=== PATIENT | female | born 1995 | race American Indian/Alaskan Native ===

== ENCOUNTER 2016-10-29 15:43 | Outpatient (CLI) | payer OTHER, MEDICAID ==
[2016-10-29 16:14] VITALS: BP 98/68
== END 2016-10-29 19:26 | disposition home or self-care (01) ==
LOC: TRG 15:43
PROVIDERS: ATTEND Obstetrics & Gynecology
DX: O47.1 False labor at or after 37 completed weeks of gestation (principal); Z3A.39 39 weeks gestation of pregnancy

== ENCOUNTER 2016-10-30 05:35 | Inpatient (IN) | payer OTHER, MEDICAID ==
[2016-10-30] MEDS ORDERED: LACTATED RINGERS 1,000 ML ONE (05:44)
[2016-10-30] MEDS ORDERED: STADOL IV PRN ×2 (05:51→06:25)
[2016-10-30] MEDS ORDERED: PITOCin/NS 20 UNIT/1000ML DRIP 20 UNITS/1,000 ML BAG IV SCH ×2 (06:00→07:00)
[2016-10-30] MEDS: LACTATED RINGERS 1,000 ML IV SCH ×3 (06:01→08:01)
[2016-10-30] MEDS ORDERED: NARCAN 2 MG/2 ML ONE (06:04)
--- NOTE | 2016-10-30 06:05 | History and Physical Report ---
History of Present Illness Date of admission: 10/30/16 05:46 History of present illness: Menstrual History Menses every: 28 days Duration: 4 LMP: 01/06/2016 LMP reliability: unknown LMP character: normal test type: urine test Date: 05/02/2016 BC at conception: none Planned ? no EDC Calculations LMP: 10/12/2016 EDC Confirmation: 10/30/2016 Gestational Age: 14 1/7 weeks Past History : 2 Term Births: 0 Premature Births: 0 Living Children: 0 Para: 0 Mult. Births: 0 Prev : 0 Prev. attempt? 0 Aborta: 1 Elect. Ab: 1 Spont. Ab: 0 Ectopics: 0 # 1 Delivery date: 2014 Delivery type: EAB Comments: medical Past Medical History: Negative Past Medical History Past Surgical History: Negative Past Medical History Surgery (Non-mortgage loan counselor): Negative Past Surgical History Abnormal PAP: negative Infertility: negative Social Hx: Engaged [facility] Infection History Hx of STD: none Personal hx. of genital herpes: no Partner hx. of genital herpes: no Genetic History Congenital Heart Defect: Mom: no Dad: no [place] Disease: Mom: no Dad: no Thalassemia Mom: no Dad: no Neural Tube Defect Mom: no Dad: no Down's Syndrome Mom: no Dad: no Ridge-Sachs Mom: no Dad: no Sickle Cell Disease/Trait Mom: no Dad: no Hemophilia Mom: no Dad: no Muscular Dystrophy Mom: no Dad: no Cystic Fibrosis Mom: no Dad: no Megan Chorea Mom: no Dad: no Mental Retardation Mom: no Dad: no Fragile X Mom: no Dad: no Other Genetic/Chromosomal Disorder Mom: no Dad: no Child w/other defect Mom: no Dad: no Enviromental Exposures Xray Exposure: no Medication, drug, or alcohol use since LMP: no Chemical/Other Exposure: no Exposure to Cat Liter: no Hx of Parvovirus (Fifth Disease): no Current Allergies (reviewed today): No known allergies Laboratory Results Date/Time Collected: 05/02/2016 Routine Urinalysis Past History - Obstetrical History : 1 Medications and Allergies Allergies Allergy/AdvReac Type Severity Reaction Status Date / Time No Known Allergies Allergy Unverified 10/29/16 16:15 Home Medications Medication Instructions Recorded Confirmed Last Taken Type No Known Home Medications [No 10/29/16 10/29/16 Unknown History Reported Home Medications] Active Meds: Active Medications Butorphanol Tartrate (Stadol) 2 mg IV Q2H PRN PRN Reason: Labor Pain Lactated Ringer's (Lactated Ringers) 1,000 mls @ 125 mls/hr IV DIRECT CELY Last Admin: 10/30/16 06:01 Dose: 125 mls/hr Oxytocin/Sodium Chloride (Pitocin/Ns 20 Unit/1000ml Drip) 20 units in 1,000 mls @ 125 mls/hr IV DIRECT CELY - Vital Signs Vital signs: Vital Signs Pulse BP 93 H 132/70 10/30/16 05:51 10/30/16 05:51 Temp Pulse Resp BP Pulse Ox 98.5 F 93 H 20 132/70 10/30/16 05:58 10/30/16 05:51 10/30/16 05:58 10/30/16 05:51 Results All other labs normal.
[2016-10-30] MEDS ORDERED: ePHEDrine SULFATE IV PRN ×2 (06:25→07:34)
[2016-10-30] MEDS ORDERED: XYLOCAINE 2% INFILTRATI ONE ×2 (06:25→11:04)
[2016-10-30] MEDS ORDERED: MINERAL OIL PO PRN (06:25)
[2016-10-30] MEDS ORDERED: PHENERGAN PO PRN ×2 (06:25→13:47)
[2016-10-30 06:55] LABS: Basophils % (Auto) 0.2 % (0.0-1.8); Eosinophils % (Auto) 0.1 % (0.0-4.3); Hematocrit 40.6 % (30.3-42.9); Hemoglobin 13.6 gm/dl (10.1-14.3); Mean Corpuscular HGB Conc 34 % (30-34); Mean Corpuscular Hemoglobin 31 pg (28-32); Mean Corpuscular Volume 93 fl (79-97); Platelet Count 183 K/mm3 (140-440); Red Blood Count 4.35 M/mm3 (3.65-5.03); Red Cell Distribution Width 13.3 % (13.2-15.2); White Blood Count 12.5 K/mm3 (4.5-11.0)
[2016-10-30] MEDS ORDERED: LACTATED RINGERS 1,000 ML IV SCH (07:00)
[2016-10-30] MEDS ORDERED: NARCAN 2 MG/2 ML IV PRN (07:34)
[2016-10-30] MEDS ORDERED: fentaNYL-BUPIV 2 MCG/ML-0.125% 200 MCG/100 ML BAG EPIDURAL SCH (08:00)
--- NOTE | 2016-10-30 11:31 | Procedure Note ---
OB Delivery Note - Delivery Date of Delivery: 10/30/16 Surgeon: AMY LAWLER Estimated blood loss: 300cc - Vaginal Delivery presentation: vertex Delivery position: OA Intrapartum events: prolonged 2nd stage>2.5hr Delivery induction: none Delivery monitor: external FHT, external uterine, internal FHT Route of delivery: vacuum extraction Indicators for instrumentation: nonreassuring FHR tracing (patient with frequent late decelerations also maternal exhaustion) Delivery placenta: spontaneous Delivery cord: nuchal cord (tight 1 required clamping and cutting on perineum) Episiotomy: none Delivery laceration: 2nd degree Delivery repair: vicryl Anesthesia: local, epidural Delivery comments: NICU personnel present at delivery. Vacuum was placed at a +3 station and requiring 1 pull with no pop offs - Infant A at 1 minute: 8 at 5 minutes: 9 Infant Gender: Male
[2016-10-30] MEDS ORDERED: DERMOPLAST TP PRN (13:47)
[2016-10-30] MEDS ORDERED: NORCO 5/325 PO PRN (13:47)
[2016-10-30] MEDS ORDERED: DULCOLAX PR PRN (13:47)
[2016-10-30] MEDS ORDERED: MILK OF MAGNESIA PO PRN (13:47)
[2016-10-30] MEDS ORDERED: PHENERGAN PR PRN (13:47)
[2016-10-30] MEDS ORDERED: TUCKS PAD TP PRN (13:47)
[2016-10-30] MEDS ORDERED: BENADRYL PO PRN (13:47)
[2016-10-30] MEDS ORDERED: ZOFRAN IV PRN (13:47)
[2016-10-30] MEDS ORDERED: SODIUM CHLORIDE FLUSH SYRINGE 10 ML IV NR (13:47)
[2016-10-30] MEDS ORDERED: TYLENOL PO PRN (13:47)
[2016-10-30] MEDS ORDERED: LANSINOH TP PRN (13:47)
[2016-10-30] MEDS: MOTRIN PO SCH (17:06)
[2016-10-30] MEDS: COLACE PO SCH (21:23)
[2016-10-30 23:57] LABS: Hematocrit 33.1 % (30.3-42.9); Hemoglobin 11.1 gm/dl (10.1-14.3)
[2016-10-31] MEDS: MOTRIN PO SCH ×3 (00:15→13:17)
--- NOTE | 2016-10-31 08:35 | Discharge Summary ---
Providers - Providers Date of Admission: 10/30/16 05:46 Date of discharge: 10/31/16 (pt req d/c today) Attending physician: AMY LAWLER 10/30/16 13:47 Consult to Testing Director [CONS] Routine Reason For Exam: assistance with , SNS Primary care physician: AMY LAWLER Hospitalization Reason for admission: active labor Delivery: Episiotomy: none Laceration: none Incision: normal Other procedures: none complications: none Discharge diagnosis: IUP at term delivered baby: male Hospital course: uncomplicated vaginal delivery Pt w/o complaint VSS FF below umb Loch small Perineum intact H&H slight drop r/t blood loss from delivery Doing well s/p vag delivery P: d/c today with instructions RTO 4-6 weeks Condition at discharge: Good Disposition: DISCHARGED TO HOME OR SELFCARE - Discharge Diagnoses (1) Spontaneous vaginal delivery Status: Acute Comment: rto 4-6 weeks Plan - Provider Discharge Summary Activity: routine, no sex for 6 weeks, no heavy lifting 4 weeks, no strenuous exercise Diet: routine Instructions: routine Additional instructions: [] Smoking cessation referral if applicable(refer to patient education folder for contact #) [] Refer to [facility] Booklet Call your doctor immediately for: * Fever > 100.5 * Heavy vaginal bleeding ( >1 pad per hour) * Severe persistent headache * Shortness of breath * Reddened, hot, painful area to leg or breast * Drainage or odor from incision. * Keep incision clean and dry at all times and follow doctor's instructions regarding bathing/showering - Follow up plan Follow up: AMY LAWLER MD [Primary Care Provider] - 11/30/16 (Please call [phone] to schedule your visit in 4 weeks and to schedule your son's circumcision in 1 week. Bring the EMLA cream with you to his visit. Take medications as prescribed. Call with concerns. )
[2016-10-31] MEDS ORDERED: PRENATAL VITAMIN PO SCH (10:00)
[2016-10-31] MEDS: COLACE PO SCH (10:50)
[2016-10-31 14:33] VITALS: BP 104/58
== END 2016-10-31 13:35 | disposition home or self-care (01) | DRG 775 ==
LOC: TRG 05:35 → LD 05:46 → OB 12:50
PROVIDERS: ADMIT Obstetrics & Gynecology; ATTEND Obstetrics & Gynecology
PROC: 10D07Z6 Extraction of Products of Conception, Vacuum, Via Natural or Artificial Opening (ICD-10-PCS; principal; 2016-10-30)
PROC: 0KQM0ZZ Repair Perineum Muscle, Open Approach (ICD-10-PCS; 2016-10-30)
PROC: 3E0S3CZ (ICD-10-PCS; 2016-10-30)
PROC: 00HU33Z Insertion of Infusion Device into Spinal Canal, Percutaneous Approach (ICD-10-PCS; 2016-10-30)
DX: O69.1XX0 Labor and delivery complicated by cord around neck, with compression, not applicable or unspecified (principal); O70.1 Second degree perineal laceration during delivery; Z3A.40 40 weeks gestation of pregnancy; Z37.0 Single live birth; O63.1 Prolonged second stage (of labor); O76 Abnormality in fetal heart rate and rhythm complicating labor and delivery
CPT/HCPCS: 36415; 85014; 85018; 85025; 86592; 86850; 86900; 86901; 99211; A6250; G0463; J0595; J2310; J2590; J7120